=== PATIENT | male | born 1955 | race Caucasian/White ===

== ENCOUNTER 2018-11-01 10:06 | Inpatient (IN) ==
[2018-11-01] MEDS ORDERED: ASPIRIN ONE (10:17)
[2018-11-01] MEDS ORDERED: ASPIRIN PO ONE ×2 (10:22→11:36)
[2018-11-01] MEDS ORDERED: DUONEB (A & A) INH ONE (11:37)
[2018-11-01] MEDS ORDERED: TORADOL IV ONE (11:37)
[2018-11-01] MEDS ORDERED: SOLU-MEDROL IV ONE (11:37)
--- NOTE | 2018-11-01 11:48 | PROVIDER DOCUMENTATION ---
This chart was entered by Tisha Snyder Scribe, acting as scribe for Valeriy Nye MD. HPI-Chest Pain - General Source: patient - History of Present Illness-CP Location: reports: other (L sided) Chest Pain Radiation: reports: no radiation Quality of Pain: reports: pressure Severity in ED: moderate, severe Onset/Duration: 1 hour ago Timing: still present, constant, getting worse Context/Activities at Onset: reports: none Modifying Factors: worse with: breathing, coughing, other (sitting up) Associated Symptoms: reports: shortness of breath, weakness Nitro Today/Relief: no nitro taken today Aspirin Treatment Today: 325 mg x 1, provided by ED Prior Chest Pain/Cardiac Workup: reports: no prior chest pain, no prior cardiac workup Similar Symptoms Previously?: No Recently Seen Here or By Another Healthcare Provider: No <Valeriy Nye - Last Filed: 11/01/18 15:14> <Bianka Mayo - Last Filed: 11/01/18 15:26> - General Chief Complaint: Chest Pain Stated Complaint: CHEST PAIN Time Seen by Provider: 11/01/18 11:04 Allergies/Adverse Reactions: Patient Allergies Allergy/AdvReac Type Severity Reaction Status Date / Time No Known Allergies Allergy Verified 05/10/15 13:13 Home Medications: Home Medication List Medication Instructions Recorded Confirmed Last Taken Type Echinacea 400 mg PO DAILY 12/22/14 05/14/15 05/13/15 17:00 History Felodipine [Felodipine ER] 2.5 mg PO BID 12/22/14 05/14/15 05/13/15 17:00 History Fish Oil/Dha/Epa [Fish Oil 1,200 1 each PO DAILY 12/22/14 05/14/15 05/07/15 07:00 History mg Fish Oil] Losartan [Cozaar] 12.5 mg PO DAILY 12/22/14 05/14/15 05/14/15 05:30 History Multivitamins/Minerals [Centrum 1 each PO DAILY 12/22/14 05/14/15 05/13/15 07:00 History Silver] SIMVAstatin [Zocor] 20 mg PO QHS 12/22/14 05/14/15 05/13/15 17:00 History Loratadine [Claritin] 10 mg PO DAILY 05/14/15 05/14/15 05/14/15 05:30 History Acetaminophen [Tylenol] 1,000 mg PO Q6H #0 tablet 05/15/15 Unknown Rx Celecoxib [Celebrex] 200 mg PO BID #60 capsule 05/15/15 Unknown Rx Docusate Sodium [Colace] 100 mg PO BID #0 capsule 05/15/15 Unknown Rx Oxycodone I.r. [Oxy Ir] 5 - 10 mg PO Q3H PRN PRN #60 05/15/15 Unknown Rx capsule Pregabalin [Lyrica] 75 mg PO BID #14 capsule 05/15/15 Unknown Rx Rivaroxaban [Xarelto] 10 mg PO DAILY@0600 #14 tablet 05/15/15 Unknown Rx Tramadol [Ultram] 50 - 100 mg PO Q4H PRN PRN #60 05/15/15 Unknown Rx tablet - History of Present Illness-CP Nature of Presenting Problem: 63 y/o male presents to ED with constant, pressure-like, L sided chest pain, SOB, and weakness onset 45 mins prior to arrival and worsening. Pt reports his pain is non-radiating. Pt states coughing, inspiration, and sitting up exacerbates his pain. Pt reports no cardiac hx or family hx. Pt states he has never had pain like this before. Pt is alert and oriented. (Valeriy Nye) Review of Systems - Adult - REVIEW OF SYSTEMS - ADULT Constitutional: denies: chills, fever Eyes: reports: no symptoms reported Ears, Nose, Mouth & Throat: reports: no symptoms reported Cardiovascular: reports: chest pain. denies: palpitations Respiratory: reports: shortness of breath. denies: cough Gastrointestinal: denies: abdominal pain, diarrhea, nausea, vomiting Genitourinary: reports: no symptoms reported Musculoskeletal: denies: back pain, joint pain Integumentary: reports: no symptoms reported Neurological: reports: other (weakness). denies: dizziness/vertigo, seizure Psychiatric: reports: no symptoms reported Endocrine: reports: no symptoms reported Hematologic/Lymphatic: reports: no symptoms reported Allergic/Immunologic: reports: no symptoms reported All Other Systems: Reviewed and Negative <Valeriy Nye - Last Filed: 11/01/18 15:14> Past History - Adult - PAST MEDICAL HISTORY-ADULT Review of Records: reports: Old Records Reviewed, Nursing Assessment Review, Medications Reviewed Major Childhood Illnesses: reports: denies history Cardiovascular: reports: HTN Respiratory: reports: pneumonia - PRIOR SURGERIES/PROCEDURES Surgical/Procedure History: reports: none - IMMUNIZATION STATUS Childhood Immunizations: See Nurse Assessment Flu Vaccine: See Nurse Assessment - FAMILY HISTORY Family History: reviewed, not pertinent - SOCIAL HISTORY Smoking: less than 1 pack/day Provider spent 3-5 mins advising pt. on dangers of tobacco.: Discussed manners to quit use, and f/u contacts for add'l counseling. Substance Use: none/never Alcohol Use Frequency: every day Number of drinks per typical drinking period:: 5-10 drinks Living Situation: family <Valeriy Nye - Last Filed: 11/01/18 15:14> Physical Exam-General - PHYSICAL EXAM-ADULT Initial Vital Signs Reviewed: Yes - CONSTITUTIONAL General Appearance: appears well, alert, no apparent distress - EYES Eyes: PERRL/EOMI, pink conjunctivae - HEAD, EARS, NOSE, MOUTH & THROAT HENMT: normocephalic/atraumatic, moist mucous membranes, normal ENT inspection - NECK Neck: non-tender, full range of motion - RESPIRATORY Respiratory: chest non-tender, lungs clear, decreased breath sounds (diminished breath sounds on the L compared to the R) - CARDIOVASCULAR Cardiovascular: normal peripheral pulses, regular rate, rhythm - GASTROINTESTINAL (ABDOMEN) Abdominal Exam: normal bowel sounds, non tender, soft - MUSCULOSKELETAL Back Exam: normal inspection, no CVA tenderness, no vertebral tenderness Extremity: normal range of motion, non-tender, normal gait - SKIN Integumentary: normal color, warm/dry - NEUROLOGIC Neurologic: grossly normal - PSYCHIATRIC Psych/Mental Status: normal mood/affect, normal thought content, normal thought process, oriented x 3 <Valeriy Nye - Last Filed: 11/01/18 15:14> - HEART Score HEART Score: History: Slightly Suspicious HEART Score: ECG: Non-Specific Repolarization Disturbance/LBBB/PM HEART Score: Age: 45-65 Years HEART Score: Risk Factors for Atherosclerotic Disease: 1 or 2 Risk Factors HEART Score: Troponin: < or = Normal Limit Total HEART Score:: 3 <Valeriy Nye - Last Filed: 11/01/18 15:14> Progress - PLAN OF CARE/RESULTS Result Diagrams: 11/01/18 10:27 11/01/18 10:27 - REASSESSMENT Reassessment #1 Time Reassessed: 12:18 Status: unchanged ([facility] - [address], [address], [place] [address] [facility] - [address], [place] [address] Department of Imaging Patient: PAMELLA TOLEDO EADM Date: 11/01/18MR#: [id number] : 07/10/1969ADM Status: REG [facility], Phoenixt#: [id number] Age/Sex: 49/MRoom/Bed: Loc: ED Ordering Physician: Valeriy Nye MD Family Physician: None,PCP Reason for Procedure: CP Signed EXAM: CHEST- 2 VIEWS HISTORY: CP TECHNIQUE: Chest two views COMPARISON: 09/29/2018 FINDINGS: The lungs are well expanded. The heart is not enlarged. The vessels are not distended. There are no infiltrates. No pleural effusions. IMPRESSION: No acute abnormality. Electronically signed by Carlos Eduardo Garcia 11/01/2018 12:10 PM 11/01/18 1210 Interpreting Physician: Carlos Eduardo Garcia MD Dictated Date/Time: 11/01/181208 cc: Valeriy Nye MD; None,PCP) Reassessment #2 Time Reassessed: 13:43 Status: unchanged (Pt reports he is still having pain. Pt obviously uncomfortable in room.) - EKG 1 Time of EKG reading by physician:: 10:50 EKG Read and Signed by:: Valeriy Nye EKG Interpretation (*Must complete 3 of following elements*): Abnormal (Borderline) Rate: 90 Rhythm: NSR Mobile: right QRS: poor R wave progression NH Interval: normal ST Wave: normal Comments: ? old AWMI. -Dr. Nye - XRAY 1 XRAY Study: Chest Impression: See EMR Report ([facility] - [address] [facility], [address] [address] [address] [facility] - [facility] [place] [address] Department of Imaging Patient: OLE TRIPPADM Date: 11/01/18MR#: [id number] : 1955DM Status: REG ERAcct#: [id number] Age/Sex: 63/MRoom/Bed: Loc: ED Ordering Physician: Valeriy Nye MD Family Physician: Jeana Rashid MD Reason for Procedure: CP Signed EXAM: CHEST-2 VIEWS HISTORY: CP TECHNIQUE: Chest two views COMPARISON: 12/22/2014 FINDINGS: The lungs are well expanded. The heart is not enlarged. The vessels are not distended. There are no infiltrates. No pleural effusions. Scattered granuloma. IMPRESSION: No acute abnormality. Electronically signed by Carlos Eduardo Garcia 11/01/2018 11:59 AM 11/01/18 1151 Interpreting Physician: Carlos Eduardo Garcia MD Dictated Date/Time: 11/01/18 1153 cc: Valeriy Nye MD; Jeana Rashid MD) - CT/MRI 1 CT Study: Angiogram (Pulmonary Arteries) Impression: See EMR Report ([facility] - [address] [facility], [address], [place] [address] [facility] - [facility] [place] [address] Department of Imaging Patient: OLE TRIPPADM Date: 11/01/18MR#: [id number] : 1955DM Status: REG ERAcct#: [id number] Age/Sex: 63/MRoom/Bed: Loc: ED Ordering Physician: Bianka Mayo MD Family Physician: Jeana Rashid MD Reason for Procedure: chest pain, elevated dimer Signed CT ANGIOGRM PULMONARY ARTERIES - 11/01/2018 INDICATION: chest pain, elevated dimer TECHNIQUE: Axial CT images were obtained after administering intravenous contrast. Coronal MIP images were generated. COMPARISON: None FINDINGS: There is no pulmonary embolism. Heart and great vessels are normal. No adenopathy. There is a small focal infiltrate in the lingula anteriorly. There is moderate COPD. The adrenal glands are bulky bilaterally. Otherwise abdominal images appear normal. There are severe degenerative changes of the spine. No acute or suspicious bony lesion. IMPRESSION: Negative for pulmonary embolus and. COPD. Small focal infiltrate in the lingula. Recommend treatment and a follow-up chest CT in one month. This exam was performed using automated exposure control, adjustment of mA or kV according to patient size, and/or use of iterative reconstruction technique Electronically signed by Alvaro Johnson 11/01/2018 3:03 PM 11/01/18 1503 Interpreting Physician: Alvaro Johnson MD Dictated Date/Time: 11/01/18 1501 cc: Bianka Mayo MD; Jeana Rashid MD) - CONSULTS/PCP/HOSPITALIST Notification #1 *Consult/PCP/Hospitalist*: SCOTT Cole for Dr. Crenshaw Time Discussed: 14:27 Reason/Comments: Chest pain Consult Disposition: Admit - CHANGE OF SHIFT REPORT (ED Provider) 1 Report Given and Care Transferred to:: Dr. Mayo Time of Transfer: 11:48 Items Pending: Labs, XRAY Results <Valeriy Nye - Last Filed: 11/01/18 15:14> - PLAN OF CARE/RESULTS Result Diagrams: 11/01/18 10:27 11/01/18 10:27 <Bianka Mayo - Last Filed: 11/01/18 15:26> - PLAN OF CARE/RESULTS Progress/Plan/Lab Results: Vital Signs - 8 hr 11/01/18 10:10 11/01/18 10:18 11/01/18 10:22 Temperature 97.8 F Pulse Rate 86 88 82 Respiratory Rate 20 Blood Pressure 148/75 148/78 135/80 O2 Sat by Pulse Oximetry 96 96 95 11/01/18 10:30 11/01/18 10:32 11/01/18 10:47 Temperature Pulse Rate 75 80 73 Respiratory Rate Blood Pressure 134/73 130/79 O2 Sat by Pulse Oximetry 95 94 L 94 L 11/01/18 11:02 11/01/18 11:17 11/01/18 11:32 Temperature Pulse Rate 75 84 73 Respiratory Rate Blood Pressure 137/76 129/79 134/85 O2 Sat by Pulse Oximetry 93 L 96 94 L 11/01/18 12:00 11/01/18 12:02 Temperature Pulse Rate 57 L 70 Respiratory Rate 16 Blood Pressure 130/72 O2 Sat by Pulse Oximetry 100 Laboratory Results - last 24 hr 11/01/18 11/01/18 11/01/18 10:27 10:27 10:27 WBC 6.79 RBC 4.76 Hgb 15.6 Hct 43.1 MCV 90.5 MCH 32.8 H MCHC 36.2 RDW Std Deviation 13.9 Plt Count 192 MPV 8.8 Immature Gran % (Auto) 0.3 Neut % (Auto) 69.8 Lymph % (Auto) 15.9 L [place] % (Auto) 12.2 H Eos % (Auto) 1.5 Baso % (Auto) 0.3 Immature Gran # (Auto) 0.02 Neut # (Auto) 4.74 Lymph # (Auto) 1.08 L [place] # (Auto) 0.83 H Eos # (Auto) 0.10 Baso # (Auto) 0.02 PT INR PTT (Actin FS) D-Dimer, Quantitative Sodium 138 Potassium 4.4 Chloride 97 L Carbon Dioxide 27 Anion Gap 14 BUN 6 L Creatinine 0.5 L Estimated GFR/1.73 m2 > 60 BUN/Creatinine Ratio 12 Glucose 101 Calculated Osmolality 273 Calcium 10.0 Total Bilirubin 0.48 AST 24 ALT 18 Alkaline Phosphatase 118 Creatine Kinase 79 Troponin T Pkq-T-Jwarhyycaqv Pept 25 Total Protein 7.9 Albumin 4.7 Globulin 3.2 Albumin/Globulin Ratio 1.5 Plasma Lactate 11/01/18 11/01/18 11/01/18 10:27 10:27 12:10 WBC RBC Hgb Hct MCV MCH MCHC RDW Std Deviation Plt Count MPV Immature Gran % (Auto) Neut % (Auto) Lymph % (Auto) [place] % (Auto) Eos % (Auto) Baso % (Auto) Immature Gran # (Auto) Neut # (Auto) Lymph # (Auto) [place] # (Auto) Eos # (Auto) Baso # (Auto) PT 12.9 INR 0.96 PTT (Actin FS) 29.8 D-Dimer, Quantitative 0.60 H Sodium Potassium Chloride Carbon Dioxide Anion Gap BUN Creatinine Estimated GFR/1.73 m2 BUN/Creatinine Ratio Glucose Calculated Osmolality Calcium Total Bilirubin AST ALT Alkaline Phosphatase Creatine Kinase Troponin T < 0.010 Hsu-B-Njdsrgsqlkz Pept Total Protein Albumin Globulin Albumin/Globulin Ratio Plasma Lactate 0.8 11/01/18 13:54 WBC RBC Hgb Hct MCV MCH MCHC RDW Std Deviation Plt Count MPV Immature Gran % (Auto) Neut % (Auto) Lymph % (Auto) [place] % (Auto) Eos % (Auto) Baso % (Auto) Immature Gran # (Auto) Neut # (Auto) Lymph # (Auto) [place] # (Auto) Eos # (Auto) Baso # (Auto) PT INR PTT (Actin FS) D-Dimer, Quantitative Sodium Potassium Chloride Carbon Dioxide Anion Gap BUN Creatinine Estimated GFR/1.73 m2 BUN/Creatinine Ratio Glucose Calculated Osmolality Calcium Total Bilirubin AST ALT Alkaline Phosphatase Creatine Kinase Troponin T < 0.010 Mkq-N-Fioazcexotk Pept Total Protein Albumin Globulin Albumin/Globulin Ratio Plasma Lactate Orders Category Date Time Status Admit - [facility] Routine AdmDCTranf 11/01/18 15:22 Active Activity - Up with Assistance ORDERED Care 11/01/18 15:22 Active Cardiac Monitoring DIRECTED Care 11/01/18 11:36 Active FSBS/Accucheck Result AC + HS Care 11/01/18 15:22 Active Oxygen Therapy- ED Nursing DIRECTED Care 11/01/18 11:36 Active Saline Loc NOW Care 11/01/18 11:36 Active Update & Confirm Home Medicati ROUTINE Care 11/01/18 15:24 Active Diabetic Diet Diet 11/01/18 15:22 Active CHEST-2 VIEWS [RAD] Stat Exams 11/01/18 11:[address] ANGIOGRM PULMONARY ARTERIES [CT] Stat Exams 11/01/18 14:29 Completed CBC WITH ELECTRONIC DIFF [HEME] Stat Lab 11/01/18 10:27 Completed CK PROFILE [SP CHEM] Stat Lab 11/01/18 10:27 Completed COMPREHENSIVE METABOLIC PANEL [CHEM] Stat Lab 11/01/18 10:27 Completed D-DIMER [COAG] Stat Lab 11/01/18 10:27 Completed LACTATE, PLASMA [CHEM] Stat Lab 11/01/18 12:10 Completed PRO B-NATRIURETIC PEPTIDE Stat Lab 11/01/18 10:27 Completed PROTIME WITH INR [COAG] Stat Lab 11/01/18 10:27 Completed PTT [COAG] Stat Lab 11/01/18 10:27 Completed TROPONIN T Stat Lab 11/01/18 10:27 Completed TROPONIN T Stat Lab 11/01/18 13:54 Completed Albuterol 2.5MG/Ipratrop 0.5MG [Duoneb (A & A)] Med 11/01/18 11:37 Discontinued 3 ml INH NOW ONE Albuterol 2.5MG/Ipratrop 0.5MG [Duoneb (A & A)] Med 11/01/18 15:22 Active 3 ml INH Q2H PRN PRN Aspirin Med 11/01/18 10:17 Discontinued 325 mg .ROUTE .STK-MED ONE Aspirin Med 11/01/18 10:22 Discontinued 325 mg PO NOW ONE Aspirin Med 11/01/18 11:36 Discontinued 325 mg PO NOW ONE CefTRIAXONE [Rocephin] 1 gm Med 11/01/18 15:17 Active 0.9% Sodium Chloride Inj [Ns] 50 ml IV NOW CefTRIAXONE [Rocephin] 1 gm Med 11/02/18 09:00 Active 0.9% Sodium Chloride Inj [Ns] 50 ml IV Q24H Insulin Human Regular [Humulin R] Med 11/01/18 16:00 Active See Protocol SUBQ 0700,1100,1600,2100 Ketorolac [Toradol] Med 11/01/18 11:37 Discontinued 30 mg IV NOW ONE Methylprednisolone Sod Succ [Solu-Medrol] Med 11/01/18 11:37 Discontinued 125 mg IV NOW ONE Morphine Med 11/01/18 13:34 Discontinued 2 mg IV NOW ONE Ondansetron [Zofran] Med 11/01/18 13:34 Discontinued 4 mg IV NOW ONE Aerosol Treatments Routine Oth 11/01/18 11:37 Completed Aerosol Treatments Routine Oth 11/01/18 15:22 Active Aerosol Treatments Stat Oth 11/01/18 11:37 Completed CP/SOB/Palp >45 yrs of Age Stat Oth 11/01/18 11:36 Ordered EKG [EKG] Stat Ther 11/01/18 11:36 Draft Transfer/Admit Order [TRANSFER] Routine Transfer 11/01/18 15:18 Ordered Departure - Departure Date of Disposition Decision: 11/01/18 Time of Disposition Decision: 14:28 Certified Medical Emergency: Emergent - Critical Care Note This patient required my direct & personal management of CC.: No <Valeriy Nye - Last Filed: 11/01/18 15:14> - Departure Certified Medical Emergency: Emergent - Critical Care Note This patient required my direct & personal management of CC.: No <Bianka Mayo - Last Filed: 11/01/18 15:26> - Departure DIAGNOSIS: Tobacco use Chest pain Qualifiers: Chest pain type: unspecified Qualified Code(s): R07.9 - Chest pain, unspecified Disposition: ADMITTED INPATIENT 09 Condition: Stable Referrals and Follow-Ups: Jeana Rashid MD [Primary Care Provider] - Discharge Education: Steps to Quit Smoking, [id number] Attestation - Physician/ ANGELICA Attestation Patient care was provided by Advanced Practice Provider:: No The physician spent face to face time with patient:: Yes Advanced Practice Provider documentation review:: Supervising physician onsite and consulted in the evaluation and care of this patient. The physician did have a face to face encounter with the patient. <Valeriy Nye - Last Filed: 11/01/18 15:14> - Physician/ ANGELICA Attestation Patient care was provided by Advanced Practice Provider:: No The physician spent face to face time with patient:: Yes Advanced Practice Provider documentation review:: Supervising physician onsite and consulted in the evaluation and care of this patient. The physician did have a face to face encounter with the patient. <Bianka Mayo - Last Filed: 11/01/18 15:26> This chart was documented by the indicated scribe, (Tisha Snyder Scribe) and accurately reflects the services I performed and decisions made by me, Valeriy Nye MD, as attested by the provider's signature.
--- NOTE | 2018-11-01 12:01 | Diag Imaging Result Doc PS360 ---
EXAM: CHEST-2 VIEWS HISTORY: CP TECHNIQUE: Chest two views COMPARISON: 12/22/2014 FINDINGS: The lungs are well expanded. The heart is not enlarged. The vessels are not distended. There are no infiltrates. No pleural effusions. Scattered granuloma. IMPRESSION: No acute abnormality. Electronically signed by Carlos Eduardo Garcia 11/01/2018 11:59 AM
[2018-11-01 12:12] LABS: BASO# 0.02 X1000 (0.0-0.2); BASO% 0.3 % (0.0-0.8); EOS% 1.5 % (0.0-10.0); HEMATOCRIT 43.1 % (42.0-52.0); HEMOGLOBIN 15.6 g/dL (14.0-18.0); IMM GRAN# 0.02 X1000 (0.0-0.04); IMM GRAN% 0.3 % (0.0-0.5); LYMPH# 1.08 X1000 (1.2-3.4); LYMPH% 15.9 % (20.5-51.1); MCH 32.8 PG (27-31); MCHC 36.2 g/dL (33-37); MCV 90.5 FL (81-99); MONO# 0.83 X1000 (0.11-0.59); MONO% 12.2 % (1.7-9.3); MPV 8.8 FL (7.4-10.4); NEUT# 4.74 X1000 (1.4-6.5); NEUT% 69.8 % (42.2-75.2); PLT 192 X1000 (130-400); RBC 4.76 XMIL (4.7-6.1); RDW 13.9 % (11.5-14.5); WBC 6.79 X1000 (4.8-10.8)
[2018-11-01 12:26] LABS: AGAP 14; ALB/GLOB RATIO 1.5; ALBUMIN 4.7 g/dL (3.5-5.0); ALKALINE PHOSPHATASE 118 U/L (32-122); BUN 6 mg/dL (8-22); CHLORIDE 97 mmol/L (98-107); CK PROFILE 79 U/L (24-204); COSMO 273; CREATININE 0.5 mg/dL (0.7-1.2); ESTIMATED GFR > 60; GLUCOSE 101 mg/dL (70-104); GOT 24 U/L (10-34); GPT 18 U/L (10-44); POTASSIUM 4.4 mmol/L (3.5-5.1); SODIUM 138 mmol/L (136-145); TCO2 27 mmol/L (25-35); TOTAL BILIRUBIN 0.48 mg/dL (0.20-1.00); TOTAL PROTEIN 7.9 g/dL (6.3-8.3)
[2018-11-01 12:47] LABS: INR 0.96; PROTIME 12.9 Seconds (11.0-16.0)
[2018-11-01 12:49] LABS: PTT 29.8 Seconds (22.3-41.8)
--- NOTE | 2018-11-01 12:49 | EKG Report ---
Test Performed on : 11/01/2018 10:10:14 AM Test Reason : CP Blood Pressure : / mmHG Vent. Rate : 090 BPM Atrial Rate : 090 BPM P-R Int : 164 ms QRS Dur : 090 ms QT Int : 354 ms P-R-T Axes : 066 091 076 degrees QTc Int : 433 ms Normal sinus rhythm. Rightward axis Borderline ECG When compared with ECG of 22-DEC-2014 08:21, No significant change was found Unconfirmed Result
[2018-11-01] MEDS ORDERED: ZOFRAN IV ONE (13:34)
[2018-11-01] MEDS ORDERED: MORPHINE IV ONE (13:34)
--- NOTE | 2018-11-01 15:05 | Diag Imaging Result Doc PS360 ---
CT ANGIOGRM PULMONARY ARTERIES - 11/01/2018 INDICATION: chest pain, elevated dimer TECHNIQUE: Axial CT images were obtained after administering intravenous contrast. Coronal MIP images were generated. COMPARISON: None FINDINGS: There is no pulmonary embolism. Heart and great vessels are normal. No adenopathy. There is a small focal infiltrate in the lingula anteriorly. There is moderate COPD. The adrenal glands are bulky bilaterally. Otherwise abdominal images appear normal. There are severe degenerative changes of the spine. No acute or suspicious bony lesion. IMPRESSION: Negative for pulmonary embolus and. COPD. Small focal infiltrate in the lingula. Recommend treatment and a follow-up chest CT in one month. This exam was performed using automated exposure control, adjustment of mA or kV according to patient size, and/or use of iterative reconstruction technique Electronically signed by Avlaro Johnson 11/01/2018 3:03 PM
[2018-11-01] MEDS ORDERED: ROCEPHIN 1 GM in NS 50 ML IV ONE (15:17)
[2018-11-01] MEDS ORDERED: DUONEB (A & A) INH PRN (15:22)
[2018-11-01] MEDS ORDERED: TYLENOL PO PRN (15:31)
[2018-11-01] MEDS ORDERED: MORPHINE IV PRN (15:31)
[2018-11-01] MEDS ORDERED: ZOFRAN IV PRN (15:31)
[2018-11-01] MEDS: HUMULIN R SUBQ SCH ×3 (16:00→21:06)
--- NOTE | 2018-11-01 17:24 | HISTORY AND PHYSICAL ---
PRIMARY CARE PROVIDER: Jeana Rashid MD CHIEF COMPLAINT: Chest pain. HISTORY OF PRESENT ILLNESS: Mr. Micheal Dick is a 63-year-old, male with a medical history of hypertension, COPD, obstructive sleep apnea and wears a CPAP and hypercholesterolemia who is here with complaints of chest pain that was a sudden onset around 09:30. Apparently, he was only watching TV when it started; it worsened. There was no radiation. He had some shortness of breath with it, a little lightheaded earlier when he was walking in the hospital. No nausea, vomiting, no numbness or tingling. On further questioning, he most recently around 2 months ago was treated for pneumonia orient steroids and antibiotics but continued to have a chronic cough since then, nonproductive. Denies fevers. He had a slightly elevated D-dimer of 0.6, so he was sent through a CTA of the pulmonary system which ruled out a pulmonary emboli. It did show that he had a lingering pneumonia in the left lingular area. When assessing him palpating his chest caused severe pain with just palpation. Pain is also worse when he coughs or breathes in deep. Cardiac enzymes are negative. There is no ST changes on EKG. So, we will start him on some Toradol, do some serial cardiac enzymes and watch him overnight. PAST MEDICAL HISTORY: 1. Hypertension. 2. Hyperlipidemia. 3. Diabetes mellitus type 2. 4. Chronic back pain. 5. Iritis. 6. Arthritis. 7. Obstructive sleep apnea with CPAP. 8. COPD. 9. Fibromyalgia. 10. Seasonal allergies. SURGICAL HISTORY: 1. Umbilical hernia repair. 2. Cataract surgery. 3. Bilateral knee replacement. 4. Left elbow surgery. 5. Left rotator cuff surgery. SOCIAL HISTORY: 3 to 4 Karmen Sweet little cigars per day and has done so for 25 years. Six to eight beers per day. Usually at night for 40 years. Last time he had beer was last night. He is . He is retired from [employer]. FAMILY HISTORY: Mother had no medical history. Father had diabetes and throat cancer. ALLERGIES: No known drug allergies. HOME MEDICATIONS: Not verified yet. REVIEW OF SYSTEMS: Fourteen point review of systems are complete and all were negative except for those mentioned above HPI. PHYSICAL EXAMINATION: VITAL SIGNS: Temperature 98.2 degrees, heart rate 81, respiratory rate 17, blood pressure 142/83, O2 saturation 94% on room air. GENERAL: Mr. Micheal Dick is a 63-year-old, male. He is in no acute distress. He is able to answer questions appropriately. HEENT: Atraumatic, normocephalic. Pupils equal, round, reactive to light. Extraocular movements intact. Mucous membranes are moist. NECK: Trachea midline. CARDIOVASCULAR: S1, S2. Regular rate and rhythm. No rubs, gallops, murmurs. No lower extremity edema. +2 dorsalis and radial pulses. Negative for JVD or carotid bruits. Sternal wall tender to palpation. PULMONARY: Clear to auscultation. Bilateral breath sounds. No accessory muscle use or work of breathing noted. Tolerating room air. GASTROINTESTINAL: Soft, nontender, nondistended. Positive bowel sounds x4. EXTREMITIES: Moves all extremities equally. Full range of motion. NEUROLOGIC: A and oriented x3. Follows commands. Sensory is intact. SKIN: Warm, dry, intact. LABORATORY DATA: White blood cells 6000, hemoglobin 15, hematocrit 43, platelet count is 192,000, INR 0.96, PTT is 29.8, D-dimer 0.6, sodium 138, potassium 4.4, BUN 6, creatinine 0.5, glucose 101, calcium 10 bilirubin 0.48 AST 24, ALT 18, CK 79. Troponin x2 sets were less 0.01. ProBNP 25, albumin 4.7, serum lactate 0.8. IMAGING: Chest x-ray negative. EKG: Normal sinus rhythm, rate 90, QTc was 433, pulmonary arteriogram negative for pulmonary emboli. It did show COPD. Also showed a small focal infiltrate in the lingula. ASSESSMENT AND PLAN: 1. Atypical chest pain. Negative enzymes. No ST changes on EKG. Pain can be reproduced by palpation on the chest wall. We will still continue to get serial cardiac enzymes. 2. Costochondritis with chest wall tenderness likely secondary to chronic coughing for the last 2 months since he had pneumonia. We will do Toradol 30 mg q.8 hours x3 doses scheduled. 3. Community-acquired pneumonia. Apparently, he still has a small area in the left lingula area. We will go ahead and do some Rocephin while he is here to help clear that up. 4. Hypertension. Still waiting on home medications to be verified to resume antihypertensives. 5. Diabetes mellitus type 2. We will do pattern blood glucoses. Sliding scale insulin and check a hemoglobin A1c. 6. Hyperlipidemia. We will check a lipid panel. 7. Chronic obstructive pulmonary disease history. We will do p.r.n. nebulizers if needed. 8. Deep venous thrombosis prophylaxis. Sequential compression device. Dictated by SCOTT Gutierrez for Haris Barbour MD Addendum: Patient seen and examined by myself. Agree with SCOTT note. It reflects my assessment and plan. Patient is being admitted to hospital for chest pain. It looks musculoskeletal pain but because of risk factors will check troponins and provide antibiotics for lingular pneumonia. cc: SCOTT Gutierrez MD [facility]
[2018-11-01] MEDS: TORADOL IV SCH (21:06)
--- NOTE | 2018-11-01 22:55 | EKG Report ---
Test Performed on : 11/01/2018 10:49:56 PM Test Reason : Multiple PVCs per telemetry Blood Pressure : / mmHG Vent. Rate : 057 BPM Atrial Rate : 057 BPM P-R Int : 176 ms QRS Dur : 088 ms QT Int : 432 ms P-R-T Axes : 062 081 079 degrees QTc Int : 420 ms Sinus bradycardia. with sinus arrhythmia. Septal infarct , age undetermined Abnormal ECG When compared with ECG of 01-NOV-2018 10:10, (Unconfirmed) Vent. rate has decreased BY 33 BPM Septal infarct is now present Confirmed by Magdalena Camilo MD ([id number]) on 11/02/2018 7:50:13 AM
[2018-11-01 23:53] LABS: AGAP 10; BUN 11 mg/dL (8-22); CALCIUM 8.7 mg/dL (8.8-10.2); CHLORIDE 99 mmol/L (98-107); COSMO 270; CREATININE 0.5 mg/dL (0.7-1.2); ESTIMATED GFR > 60; GLUCOSE 207 mg/dL (70-104); SODIUM 132 mmol/L (136-145); TCO2 23 mmol/L (25-35)
[2018-11-02] MEDS: NITROGLYCERIN SL PRN ×2 (00:50→00:56)
[2018-11-02 04:17] LABS: HEMOGLOBIN A1C 5.7 % (4.8-6.0)
[2018-11-02] MEDS: TORADOL IV SCH (04:29)
[2018-11-02 04:30] LABS: BASO# 0.01 X1000 (0.0-0.2); BASO% 0.1 % (0.0-0.8); HEMATOCRIT 45.4 % (42.0-52.0); HEMOGLOBIN 16.3 g/dL (14.0-18.0); LYMPH# 0.43 X1000 (1.2-3.4); LYMPH% 6.2 % (20.5-51.1); MCH 32.4 PG (27-31); MCHC 35.9 g/dL (33-37); MCV 90.3 FL (81-99); MONO# 0.38 X1000 (0.11-0.59); MONO% 5.4 % (1.7-9.3); MPV 8.9 FL (7.4-10.4); NEUT# 6.16 X1000 (1.4-6.5); NEUT% 88.3 % (42.2-75.2); PLT 189 X1000 (130-400); RBC 5.03 XMIL (4.7-6.1); RDW 13.8 % (11.5-14.5); WBC 6.98 X1000 (4.8-10.8)
[2018-11-02 04:32] LABS: AGAP 12; ALB/GLOB RATIO 1.3; ALBUMIN 3.9 g/dL (3.5-5.0); ALKALINE PHOSPHATASE 98 U/L (32-122); BUN 11 mg/dL (8-22); CHLORIDE 99 mmol/L (98-107); COSMO 273; CREATININE 0.5 mg/dL (0.7-1.2); ESTIMATED GFR > 60; GLUCOSE 161 mg/dL (70-104); GOT 18 U/L (10-34); GPT 15 U/L (10-44); MAGNESIUM 2.1 mg/dL (1.5-2.7); POTASSIUM 4.6 mmol/L (3.5-5.1); SODIUM 135 mmol/L (136-145); TCO2 24 mmol/L (25-35); TOTAL BILIRUBIN 0.32 mg/dL (0.20-1.00); TOTAL PROTEIN 6.9 g/dL (6.3-8.3)
[2018-11-02 04:34] LABS: INR 1.03; PROTIME 13.6 Seconds (11.0-16.0)
[2018-11-02 04:35] LABS: PTT 29.2 Seconds (22.3-41.8)
[2018-11-02] MEDS: HUMULIN R SUBQ SCH (06:37)
[2018-11-02] MEDS ORDERED: PRILOSEC PO SCH (07:00)
[2018-11-02 07:50] VITALS: BP 115/75
[2018-11-02] MEDS ORDERED: ASPIRIN EC PO SCH (09:00)
[2018-11-02] MEDS ORDERED: ROCEPHIN 1 GM in NS 50 ML IV SCH (09:00)
[2018-11-02] MEDS ORDERED: FISH OIL CONCENTRATE PO SCH (09:45)
[2018-11-02] MEDS ORDERED: CENTRUM SILVER PO SCH (09:45)
[2018-11-02] MEDS ORDERED: COZAAR PO SCH (09:45)
[2018-11-02] MEDS ORDERED: PLENDIL PO SCH (09:45)
[2018-11-02] MEDS ORDERED: MOBIC PO SCH (09:45)
[2018-11-02] MEDS ORDERED: ZYRTEC PO SCH (09:45)
[2018-11-02] MEDS ORDERED: VENTOLIN HFA INH SCH (09:45)
[2018-11-02] MEDS ORDERED: NS 500 ML ONE (10:41)
--- NOTE | 2018-11-02 15:49 | DISCHARGE SUMMARY ---
ADMISSION DATE: 11/01/2018 DISCHARGE DATE: 11/02/2018 DISCHARGE DIAGNOSES: 1. Lingular pneumonia. 2. Musculoskeletal chest pain, resolved, with costochondritis. 3. Hypertension. 4. Diabetes mellitus, type 2. 5. Hyperlipidemia. 6. Chronic obstructive pulmonary disease, not in any exacerbation. PROCEDURES: 1. Chest x-ray done on admission showed no acute abnormality. 2. Pulmonary arteriogram showed small focal infiltrate in the lingula, and it was negative for pulmonary embolus. HOSPITAL COURSE: This is a 63-year-old male with past medical history of hypertension, COPD, obstructive sleep apnea who wears CPAP mask, who was watching TV when he noticed some chest pain that was sudden onset while he was at rest. He was brought to the emergency department, and we were called for admission for chest pain. Upon our first evaluation, we found that this patient truly had musculoskeletal chest wall pain. In any case, because we were called for admission for chest pain. We checked troponins, in this case 4 times, and those were completely negative. We start Toradol IV for the chest wall pain and pain is at this point, resolved. The patient was found out to have lingular pneumonia that probably is residual from the last pneumonia that he had. At this point, we will continue with oral antibiotics for a week in this case, 2 antibiotics, and he will be seen by his primary care physician after he finished antibiotics. DISCHARGE PHYSICAL EXAMINATION: Vital Signs: Temperature 97.8 degrees, heart rate 75, respiratory rate 18, blood pressure 115/75, O2 saturation 95% on room air. General examination: This is a 63-year-old male, lying in bed, in no acute distress. Cardiovascular: S1, S2 heard. No murmurs, gallops, or rubs. Regular rate and rhythm. Respiratory: Exam clear bilaterally to auscultation. No work of breathing or using accessory muscles. Abdomen: Soft, nontender to palpation. Bowel sounds present. No organomegaly. Extremities: No clubbing, cyanosis, or edema. Peripheral pulses present in both legs. Neurological: The patient alert oriented x3. Moves 4 extremities. DISCHARGE DISPOSITION: Home to self-care. DISCHARGE MEDICATION: 1. Cefuroxime 500 mg 1 tablet p.o. b.i.d. 2. Celecoxib 200 mg p.o. daily. 3. Doxycycline 100 mg p.o. b.i.d. 4. Multivitamin 1 tablet p.o. daily. 5. Fish oil 1 tablet p.o. daily. 6. Simvastatin 20 mg 1 tablet p.o. daily. 7. Felodipine 2.5 mg 1 tablet p.o. b.i.d. 8. Losartan 12.5 mg 1 tablet p.o. daily. 9. Albuterol as needed for shortness of breath. 10. DuoNeb 1 inhalation daily. FOLLOW-UP: With his primary care physician in a couple of weeks. cc: Haris Barbour MD MTDD
[2018-11-02] MEDS ORDERED: ZOCOR PO SCH (21:00)
[2018-11-03] MEDS ORDERED: DUONEB (A & A) INH SCH (09:00)
== END 2018-11-02 12:16 | disposition home or self-care (01) | DRG 205 ==
LOC: ED 10:06 → 4N 10:07
PROVIDERS: ATTEND Internal Medicine